=== PATIENT | male | born 1965 | race Caucasian/White ===

== ENCOUNTER 2023-12-15 11:47 | Emergency (ER) | payer OTHER ==
[~2023-12-15] VITALS: Ht 177.8 cm; Wt 136.1 kg
[2023-12-15 11:47] VITALS: BP_SYST 137; PULSE 81; RESP 19; TEMP 97; O2SAT 96
[2023-12-15] MEDS: traMADol HCL HCL 50 MG TABLET (ULTRAM) PO ONE (12:39)
[2023-12-15] MEDS ORDERED: IBUP-1969 PO (13:28)
[2023-12-15] MEDS ORDERED: ACET-2634 PO (13:28)
[2023-12-15 13:40] VITALS: BP_SYST 137; PULSE 81; RESP 19; TEMP 97; O2SAT 96
== END 2023-12-15 13:30 | disposition home or self-care (01) ==
LOC: SED 11:47
DX: S92.354A Nondisplaced fracture of fifth metatarsal bone, right foot, initial encounter for closed fracture (principal); I10 Essential (primary) hypertension; W18.39XA Other fall on same level, initial encounter; Y93.89 Activity, other specified; Y92.89 Other specified places as the place of occurrence of the external cause; Y99.8 Other external cause status; Z79.899 Other long term (current) drug therapy
CPT/HCPCS: 99284